=== PATIENT | male | born 1985 | race Caucasian/White ===

== ENCOUNTER 2019-01-03 23:54 | Inpatient (IN) ==
[2019-01-04 01:35] LABS: Basophils # (auto) 0.01 K/uL (0-0.2); Basophils % (auto) 0.1 %; Eosinophils # (auto) 0.16 K/uL (0-0.5); Eosinophils % (auto) 1.9 %; Hematocrit (blood only) 41.5 % (42-52); Hemoglobin 14.6 g/dL (14.0-18.0); Immature Granulocytes # (auto) 0.01 K/uL (0.00-0.02); Immature Granulocytes % (auto) 0.1 %; Lymphocytes % (auto) 18.8 %; Mean Corpuscular Hgb Conc 35.2 g/dL (32-36); Mean Corpuscular Volume 94.1 fL (80-100); Mean Platelet Volume 10.2 fL (7.4-10.4); Monocytes # (auto) 0.78 K/uL (0.11-0.59); Monocytes % (auto) 9.2 %; Neutrophils # (auto) 5.96 K/uL (1.4-6.5); Neutrophils % (auto) 69.9 %; Platelet Count 243 K/uL (130-400); RDW Coefficient of Variation 12.8 % (11.5-14.5); RDW Standard Deviation 44.1 fL (36.4-46.3); Red Blood Count 4.41 M/uL (4.7-6.1); White Blood Count 8.52 K/uL (4.8-10.8)
[2019-01-04 02:16] LABS: Albumin Globulin Ratio 1.1 (0.9-2); BUN Creatinine Ratio 14.7 (10-20); Bilirubin,Total 0.4 mg/dl (0.2-1); Calcium 8.6 mg/dl (8.5-10.1); Creatinine Clr Calc Pharmacy 161.9 ml/min; Est GFR (African American) 140.3; Globulin 3.7 gm/dl (2.5-4.0); Potassium 3.5 mmol/L (3.5-5.1); Total Protein 7.7 gm/dl (6.4-8.2)
[2019-01-04] MEDS ORDERED: IOVERSOL 100ml IV PRN (02:25)
[2019-01-04] MEDS ORDERED: VANCOMYCIN HCL 1,750 MG in SODIUM CHLORIDE 0.9% 500 ML IV ONE (04:41)
[2019-01-04] MEDS ORDERED: VANCOMYCIN CONSULT ACTIVE PRN ×2 (04:41→06:13)
[2019-01-04] MEDS ORDERED: cefTRIAXone SODIUM 1,000 MG/50 ML BAG IV STA (04:41)
[2019-01-04] MEDS ORDERED: ACETAMINOPHEN 325 MG TAB PO PRN (06:13)
[2019-01-04] MEDS ORDERED: POLYETHYLENE (MIRALAX) 17 GM PACK PO PRN (06:13)
[2019-01-04] MEDS ORDERED: ONDANSETRON INJ 2 MG/ML 2 ML VIAL IV PRN (06:13)
[2019-01-04] MEDS ORDERED: VANCOMYCIN HCL 1,000 MG in SODIUM CHLORIDE 0.9% 250 ML IV SCH (06:13)
[2019-01-04] MEDS ORDERED: OXYCODONE/ACETAMINOPHEN 5mg/325mg TAB PO PRN (06:13)
[2019-01-04] MEDS ORDERED: AMPICILLIN/SULBACTAM CONSULT ACTIVE PRN (06:29)
--- NOTE | 2019-01-04 06:44 | History and Physical Report ---
DATE OF ADMISSION: 01/04/2019 CHIEF COMPLAINT: Infection behind the right ear. HISTORY OF PRESENT ILLNESS: A 33-year-old male with past medical history significant for depression, convulsions, not followed with neurology for some time now, who does not speak Slovenian, speaks Vietnamese, comes because of infection behind right ear since last Saturday. He thought he was bit by a spider. He went to the [place] [facility] and prescribed clindamycin on December 30. It was not getting better and he was in a lot of pain and went to PCP's office on January 02, they tried to do I and D, but not much came out. He was advised to follow up if not getting better. As he is not getting better, and having lot of pain he came here to our ER. Soft tiisue CAT scan of the neck was done. The results are pending.But seems there is phlegmon and cellulitis Hemodynamically stable. Labs are okay. We admitting for failed outpatient treatment. The patient says he had a fever yesterday, and has a lot of pain in his neck region around the lesion.. His appetite is okay. Denies any other problems. Denies any chest pain, no shortness of breath, no cough, no nausea, no vomiting, no abdominal pain. Normal bowel and bladder movements. No hematuria, no dysuria, no black stools or blood in the stools. No swelling of the legs, no rash. Currently sleepy.Brought his home medications bag ALLERGIES: No known drug allergies. PAST MEDICAL HISTORY: As mentioned above. PAST SURGICAL HISTORY: No surgical history in file. MEDICATIONS: The patient is on bupropion 100 mg p.o. at bedtime, carbamazepine 200 mg p.o. b.i.d., clindamycin 300 mg p.o. t.i.d., Klonopin 1 mg in a.m. and 2 mg at bedtime, Percocet 1 tablet p.o. q. 8 hours p.r.n. FAMILY HISTORY: Significant for: Father had diabetes and hypertension. SOCIAL HISTORY: Single. No smoking, no alcohol, no drug use as per records. REVIEW OF SYMPTOMS: As per HPI, rest of review of systems is negative. PHYSICAL EXAMINATION: GENERAL: The patient is alert and awake, somewhat sleepy, not in acute distress. VITAL SIGNS: Temperature 37, pulse 60, respiratory 12, blood pressure 91/56, oxygen 96% room air. HEENT: No pallor, no icterus. Pupils equal, round, reactive. NECK: No JVD, no neck masses, no carotid bruits. CARDIOVASCULAR: S1, S2 heard. Regular rate and rhythm, no murmur, no gallop. RESPIRATORY SYSTEM: Normal AP diameter. No accessory muscle use. No wheezing, no crackles. ABDOMEN: Soft, bowel sounds present, nontender. No distention. CENTRAL NERVOUS SYSTEM: Cranial nerves II-XII grossly intact, nonfocal. SKIN: Erythematous changes behind the right ear and papule with some drainage seen. EXTREMITIES: No edema, no erythema. LABORATORY DATA: WBC 8.5, hemoglobin 14.6, hematocrit 41.5, platelets 243. Sodium 139, potassium 3.5, chloride 104, bicarbonate 28, BUN 11, creatinine 0.7, serum glucose 95, calcium 8.6, total bilirubin 0.4, AST 21, ALT 34, alkaline phosphatase 83. Soft tissue neck CT scan is pending. ASSESSMENT AND PLAN: This is a 33-year-old male who presents with failed outpatient treatment for infection behind his right ear. 1. Cellulitis, questionable abscess behind the right ear, possible spider bite about a week ago. Treated with clindamycin.Worsening. We will start him on IV vancomycin and IV Unasyn. Follow the soft tissue CT neck results. Consult ENT for any I and D. Follow the cultures. Pain control. 2. History of depression. Continue bupropion. 3. History of seizures. Continue carbamazepine and Klonopin.Needs to followup with neurology. 4. Deep venous thrombosis prophylaxis, sequential compression devices for now. 5. Disposition: Admit to medical floor. Expect discharge home and follow with family doctor. Level 1 full code. MTDD
[2019-01-04] MEDS: clonazePAM 1 MG TAB PO SCH ×2 (08:59→21:15)
[2019-01-04] MEDS: AMPICILLIN/SULBACTAM SOD 1,500 MG in 0.9 % SODIUM CHLORIDE 100 ML IV SCH ×3 (08:59→21:12)
[2019-01-04] MEDS: CARBAMAZEPINE 200 MG TABCR PO SCH ×2 (08:59→17:05)
[2019-01-04] MEDS: SODIUM CHLORIDE 0.9% 1000ML 1,000 ML IV SCH ×2 (09:01→21:11)
--- NOTE | 2019-01-04 09:14 | Emergency Department Note ---
History of Present Illness General Chief complaint: Bite Stated complaint: SPIDER BITE??? Source: patient Mode of arrival: ambulatory Limitations: no limitations History of Present Illness Maximum Pain Intensity: 10 This patient is a 33-year-old male who presents to the emergency department ambulatory complaining of an infection behind his right ear. The patient states that he was visiting family 6 days ago and believes he may have been bitten by a spider. He states that the next day, he began developing worsening swelling. He was seen at the [facility] and was prescribed clindamycin. He has been taking this as prescribed. He saw his primary care provider yesterday due to worsening symptoms and they tried to perform an incision and drainage, but nothing came out. He states that he has been feeling feverish. He rates his discomfort a 10/10. He states the pain is causing a headache. He denies any history of medical problems. Home Medications Home Medications Medication Instructions Recorded Confirmed Type bupropion HCl 100 mg PO HS 01/04/19 01/04/19 History carbamazepine 200 mg PO BIDM 01/04/19 01/04/19 History clindamycin HCl 300 mg PO TID 01/04/19 01/04/19 History clonazepam 1 mg PO QAM 01/04/19 01/04/19 History clonazepam 2 mg PO HS 01/04/19 01/04/19 History oxycodone-acetaminophen [Percocet] 1 tab PO Q8H PRN 01/04/19 01/04/19 History Allergies Allergy/AdvReac Type Severity Reaction Status Date / Time No Known Allergies Allergy Verified 01/04/19 00:13 Past Med/Surg History Medical History No significant past medical history Social History Preferred Language: Grenadian Communication Ability: Effective Communication Tools: IPad, Language Line Label Pinker and Lip Movement/Reading Label Pinker Required: Yes and Video Beliefs That Will Affect Care: None Current Living Situation: Spouse Other Information That Helps Us Care for You: No Feels Safe at Home: Yes Safety Concerns: Feels Safe At This Time Smoking Status: Never smoker Hx Alcohol Use: No Hx Substance Use: No Review of Systems A total of 10 systems reviewed and were otherwise negative Physical Exam Vital Signs Vital Signs - 24 hr 01/03/19 23:58 01/04/19 01:50 01/04/19 02:49 Temperature 37 C Temperature Source Oral Sepsis Recent Fever Within 48 Hours No Sepsis Action Taken by Nursing No Action Required Pulse Rate 95 H Pulse Rate [Right Finger] 70 68 Pulse Rhythm [Right Finger] Regular Respiratory Rate 18 14 12 Respiratory Effort / Characteristics Non-Labored Spontaneous Non-Labored Spontaneous Respiratory Depth Normal Normal Respiratory Pattern Regular Blood Pressure 117/71 Blood Pressure [Right Arm] 119/66 91/56 L Blood Pressure Mean 86 Blood Pressure Mean [Right Arm] 83 67 Pulse Oximetry 96 99 96 Oxygen Delivery Method Room Air Room Air Room Air VITALS: Vitals are noted on the nurse's note and reviewed by myself. Vital signs stable. GENERAL: This is a 33-year-old male, in no acute distress, nondiaphoretic, well-developed well-nourished. SKIN: There is a soft tissue lesion/area of erythema/edema posterior to the right ear. There is surrounding induration and erythema extending down the neck. There is no fluctuance. EARS: External auditory canals clear, tympanic membranes pearly mustafa without erythema or effusion bilaterally. EYES: Pupils equal round and reactive to light and accommodation. NOSE: Patent, turbinates without inflammation or discharge. MOUTH: Mucous membranes moist. Tonsils are not enlarged. Pharynx without erythema or exudate. NECK: Supple without nuchal rigidity. No lymphadenopathy. HEART: Regular rate and rhythm without murmurs gallops or rubs. LUNGS: Clear to auscultation bilaterally without wheezes, rales or rhonchi. NEURO: Patient was alert and oriented to person place and time. Course Consultations Consultation #1: Dr. Joe [facility] hospitalist Administered Medications Bupropion HCl (Wellbutrin-Sr) 100 mg PO HS [facility] Stop: 02/03/19 20:59 Last Admin: 01/04/19 21:15 Dose: 100 mg Documented by: [id number] Carbamazepine (Tegretol Xr) 200 mg PO BIDM [facility] Stop: 02/03/19 07:59 Last Admin: 01/04/19 17:05 Dose: 200 mg Documented by: [id number] Admin: 01/04/19 08:59 Dose: 200 mg Documented by: [id number] Clonazepam (Klonopin) 1 mg PO QAM [facility] Stop: 02/03/19 08:59 Last Admin: 01/04/19 08:59 Dose: 1 mg Documented by: [id number] Clonazepam (Klonopin) 2 mg PO HS [facility] Stop: 02/03/19 20:59 Last Admin: 01/04/19 21:15 Dose: 2 mg Documented by: [id number] Ampicillin Sodium/Sulbactam Sodium 1,500 mg/ Sodium Chloride 104 mls @ 200 mls/hr IV Q6H [facility]; Protocol Stop: 01/14/19 07:59 Last Infusion: 01/05/19 02:36 Dose: 0 mls/hr Documented by: [id number] Admin: 01/05/19 02:04 Dose: 200 mls/hr Documented by: [id number] Infusion: 01/04/19 21:58 Dose: 0 mls/hr Documented by: [id number] Admin: 01/04/19 21:12 Dose: 200 mls/hr Documented by: [id number] Infusion: 01/04/19 13:20 Dose: 0 mls/hr Documented by: [id number] Admin: 01/04/19 12:43 Dose: 200 mls/hr Documented by: [id number] Infusion: 01/04/19 09:35 Dose: 0 mls/hr Documented by: [id number] Admin: 01/04/19 08:59 Dose: 200 mls/hr Documented by: [id number] Sodium Chloride (Nss 1000ml) 1,000 mls @ 80 mls/hr IV .[id number] [facility] Stop: 02/03/19 07:14 Last Infusion: 01/04/19 21:58 Dose: 80 mls/hr Documented by: [id number] Infusion: 01/04/19 21:21 Dose: 0 mls/hr Documented by: [id number] Admin: 01/04/19 21:11 Dose: 80 mls/hr Documented by: [id number] Infusion: 01/04/19 21:11 Dose: 0 mls/hr Documented by: [id number] Admin: 01/04/19 09:01 Dose: 80 mls/hr Documented by: [id number] Vancomycin HCl 1,250 mg/ (Sodium Chloride) 275 mls @ 125 mls/hr IV Q8H [facility]; Protocol Stop: 01/14/19 12:59 Last Infusion: 01/05/19 00:11 Dose: 0 mls/hr Documented by: [id number] Admin: 01/04/19 21:59 Dose: 125 mls/hr Documented by: [id number] Infusion: 01/04/19 21:06 Dose: 0 mls/hr Documented by: [id number] Infusion: 01/04/19 14:39 Dose: 0 mls/hr Documented by: [id number] Admin: 01/04/19 12:29 Dose: 125 mls/hr Documented by: [id number] Ketorolac Tromethamine (Toradol) 30 mg IV Q6H PRN PRN Reason: Severe Pain Stop: 01/09/19 14:04 Last Admin: 01/04/19 21:22 Dose: 30 mg Documented by: [id number] Oxycodone HCl (Roxicodone Immediate Rel) 10 mg PO Q6H PRN PRN Reason: Severe Pain Stop: 01/18/19 14:14 Last Admin: 01/04/19 23:34 Dose: 10 mg Documented by: [id number] Discontinued Medications Hydromorphone HCl (Dilaudid) 1 mg IV NOW ONE Stop: 01/04/19 09:19 Last Admin: 01/04/19 09:25 Dose: 1 mg Documented by: [id number] Hydromorphone HCl (Dilaudid) 1 mg IV NOW ONE Stop: 01/04/19 09:25 Last Admin: 01/04/19 09:32 Dose: Not Given Documented by: [id number] Hydromorphone HCl (Dilaudid) 1 mg IV NOW STA Stop: 01/04/19 13:52 Last Admin: 01/04/19 14:19 Dose: 1 mg Documented by: [id number] Ceftriaxone Sodium (Rocephin) 1,000 mg in 50 mls @ 100 mls/hr IV NOW STA Stop: 01/04/19 05:10 Last Infusion: 01/04/19 05:34 Dose: 0 mls/hr Documented by: [id number] Admin: 01/04/19 04:55 Dose: 100 mls/hr Documented by: [id number] Vancomycin HCl 1,750 mg/ (Sodium Chloride) 535 mls @ 200 mls/hr IV NOW ONE Stop: 01/04/19 07:21 Last Infusion: 01/04/19 08:22 Dose: 0 mls/hr Documented by: [id number] Admin: 01/04/19 05:41 Dose: 200 mls/hr Documented by: [id number] Ioversol (Optiray 320 100ml) 93 ml IV ONCE PRN PRN Reason: Interaction Checking Stop: 01/08/19 02:24 Last Admin: 01/04/19 02:26 Dose: 93 ml Documented by: [id number] Oxycodone/Acetaminophen (Percocet 5mg/325mg) 1 tab PO Q8H PRN PRN Reason: Pain Stop: 01/18/19 06:12 Last Admin: 01/04/19 06:36 Dose: 1 tab Documented by: [id number] Medical Decision Making Differential Diagnosis Differential diagnosis includes abscess, phlegmon, cellulitis, necrotic lymph node, mastoiditis, among others. Home Medications Current Medication List: was personally reviewed by me Laboratory Data Attestation: I reviewed the patient's lab results. Result diagrams: 01/04/19 01:23 01/04/19 01:23 Lab Results 01/04/19 01/04/19 Range/Units 01:23 01:23 WBC 8.52 (4.8-10.8) K/uL RBC 4.41 L (4.7-6.1) M/uL Hgb 14.6 (14.0-18.0) g/dL Hct 41.5 L (42-52) % MCV 94.1 (80-100) fL MCH 33.1 (25-34) pg MCHC 35.2 (32-36) g/dL RDW Std Deviation 44.1 (36.4-46.3) fL RDW Coeff of Shey 12.8 (11.5-14.5) % Plt Count 243 (130-400) K/uL MPV 10.2 (7.4-10.4) fL Immature Gran % (Auto) 0.1 % Neut % (Auto) 69.9 % Lymph % (Auto) 18.8 % [place] % (Auto) 9.2 % Eos % (Auto) 1.9 % Baso % (Auto) 0.1 % Immature Gran # (Auto) 0.01 (0.00-0.02) K/uL Neut # (Auto) 5.96 (1.4-6.5) K/uL Lymph # (Auto) 1.60 (1.2-3.4) K/uL [place] # (Auto) 0.78 H (0.11-0.59) K/uL Eos # (Auto) 0.16 (0-0.5) K/uL Baso # (Auto) 0.01 (0-0.2) K/uL Sodium 139 (136-145) mmol/L Potassium 3.5 (3.5-5.1) mmol/L Chloride 104 (98-107) mmol/L Carbon Dioxide 28 (21-32) mmol/L Anion Gap 7.0 (3-11) BUN 11 (7-18) mg/dl Creatinine 0.73 (0.6-1.4) mg/dl Est Cr Clr Drug Dosing 161.9 ml/min Est GFR ( Amer) 140.3 Est GFR (Non-Af Amer) 121.0 BUN/Creatinine Ratio 14.7 (10-20) Glucose 95 (70-99) mg/dl Calcium 8.6 (8.5-10.1) mg/dl Total Bilirubin 0.4 (0.2-1) mg/dl AST 21 (15-37) U/L ALT 34 (12-78) U/L Alkaline Phosphatase 83 (45-117) U/L Total Protein 7.7 (6.4-8.2) gm/dl Albumin 4.0 (3.4-5.0) gm/dl Globulin 3.7 (2.5-4.0) gm/dl Albumin/Globulin Ratio 1.1 (0.9-2) Specimen Hemolysis Imaging Data Attestation: I personally reviewed and interpreted this imaging study as follows: Radiologist's Impression: CT MAXILLOFACIAL: COMPARISON: None IMPRESSION: 9 mm x 11 mm x 8 mm cutaneous abscess/phlegmon (blemish) in the right retroauricular soft tissues, overlying the right mastoid process, which likely drains to the cutaneous surface (central umbilication). Subjacent stranding/induration is present extending to the level of the perivertebral fascia compatible with associated cellulitis or phlegmon. No mastoid effusion or tympanic cavity fluid to suggest otomastoiditis. INCIDENTAL FINDINGS: Mild sinus mucosal thickening without fluid level. Hypoplastic left vertebral artery. Mild spondylosis. Radiologist: Manfred Ricci M.D. Blood Pressure Blood Pressure Findings: Normal blood pressure Blood Pressure Disposition: did not require urgent referral MDM Narrative The patient is a 33-year-old male who presents today complaining of an infection posterior to the right ear. On exam, patient has a lesion with erythema/induration extending slightly into the neck. Patient has been on clindamycin for 6 days with no improvement. Lab studies are normal, with no leukocytosis, anemia or concerning electrolyte abnormality. CT was performed and does show a phlegmon with associated cellulitis. Patient has had subjective fevers at home. He was given broad-spectrum antibiotics and admitted to the [facility] service for further evaluation due to his failure of outpatient therapy. Impression & Plan Cellulitis and abscess of neck Discharge Plan Visit Data *Final* Discharge Date/Time: 01/04/19 05:56 Chief Complaint: Bite Stated Complaint: SPIDER BITE??? ED Provider: Hilario aJramillo ED Midlevel Provider: Tania Damon Discharge Problem: Cellulitis and abscess of neck Patient Disposition: Admitted As Inpatient Discharge Instructions Interventions: ED Discharge Assessment Last Done: 01/04/19 05:56
[2019-01-04] MEDS ORDERED: HYDROmorphone INJ 1 MG/ML SYRINGE IV ONE ×2 (09:18→09:24)
--- NOTE | 2019-01-04 09:39 | CT Scan Report ---
CT SCAN OF THE NECK WITH IV CONTRAST CLINICAL HISTORY: Pain and swelling behind the right ear. COMPARISON STUDY: No priors. TECHNIQUE: Following the IV administration of 93 cc of Optiray 320, CT scan of the soft tissues of th e neck was performed from the skull base to the upper chest. Images are reviewed in the axial, sagitt al, and coronal planes. IV contrast was administered without complication. A dose lowering techniqu e was utilized adhering to the principles of ALARA. The examination is degraded by motion artifact. CT DOSE: 580.62 mGy.cm FINDINGS: Soft tissues: There is dermal thickening and soft tissue infiltration seen posterior to the right ear an overlying the inferior aspect of the right temporal bone. A 10 mm focus of phlegmonous changes id entified at the dermal surface on image #91. No organized fluid collection is seen to indicate absces s. There is no osseous involvement. Pharynx: The nasopharynx, oropharynx, and laryngeal pharynx are normal in appearance. The pharyngeal airway is widely patent. There is no evidence of mass lesion. The vocal cords are symmetric. The para pharyngeal fat is well maintained. The prevertebral/retropharyngeal soft tissues are within normal li mits. The epiglottis is normal. Lymphadenopathy: There are no pathologically enlarged cervical lymph nodes. Thyroid: Normal in size and attenuation. Salivary glands: The parotid and submandibular glands are within normal limits. Brain parenchyma: The visualized brain parenchyma at the skull base is normal in appearance. Vascular structures: The carotid arteries and jugular veins are patent. Skeletal structures: Imaged portions of the calvarium at the skull base are within normal limits. The cervical spine appears intact. Orbits: The bony orbits are intact. Orbital contents are normal in appearance. Sinuses and mastoids: There is mild mucosal thickening within the left maxillary antrum. Trace mucosa l thickening is also seen within the frontal and ethmoid sinuses. The mastoid air cells are well pneu matized. Lung apices: Visualized apical lung parenchyma is clear. IMPRESSION: 1. Findings suggest cellulitis with phlegmonous change identified in the right retroauricular soft ti ssues. 2. No organized fluid collection is seen to indicate abscess. Electronically signed by: Preet hSore M.D. 01/04/2019 9:38 AM
--- NOTE | 2019-01-04 11:20 | Pharmacy Report ---
Pharmacy Abx Initial Consult - Date of Service January 04, 2019 - Pharmacy Dosing Scope Date of Consult: 01/04/19 Consultation requested by: Dr. Joe Pharmacy is consulted to initiate vancomycin and ampicillin/sulbactam IV dosing therapy, order appropriate labs and adjust drug dose/frequency. - Subjective The patient is a 33 year old M admitted on 01/04/19 05:18. - Objective Height: 5 ft 10 in Weight: 90.3 kg Vital Signs (Past 12hrs): Vital Signs Temp Pulse Pulse Resp BP BP BP 01/04/19 07:48 36.5 C 58 L 16 112/61 01/04/19 06:17 36.5 C 93 H 18 127/65 01/04/19 06:07 36.5 C 93 H 15 127/65 01/04/19 05:56 78 14 109/59 L 01/04/19 02:49 68 12 91/56 L 01/04/19 01:50 70 14 119/66 01/03/19 23:58 37 C 95 H 18 117/71 Pulse Ox 01/04/19 07:48 98 01/04/19 06:17 98 01/04/19 06:07 98 01/04/19 05:56 95 01/04/19 02:49 96 01/04/19 01:50 99 01/03/19 23:58 96 Lab Results (24hrs): Laboratory Tests (24 Hours) 01/04/19 01/04/19 01:23 01:23 WBC 8.52 Neut # (Auto) 5.96 Creatinine 0.73 Est Cr Clr Drug Dosing 161.9 Micro Results: 01/04/19 Unknown Gram Stain - Final Neck Wound Culture - Pending 01/04/19 06:39 Aerobic Blood Culture - Pending Blood Anaerobic Blood Culture - Pending 01/04/19 06:29 Aerobic Blood Culture - Pending Blood Anaerobic Blood Culture - Pending - Assessment & Plan Assessment 33 year old M presented the ED on 01/04 with a chief complaint of infection behind right ear (possible spider bite?) since last Saturday. Started clindamycin PO on 12/30 with attempted I&D at PCP office on 01/02 (minimal drainage). Patient complains of 10/10 pain and feeling feverish (afebrile during this admission). CT of neck (01/04): findings suggestive of cellulitis, no evidence of fluid collection (abscess) Plan Vancomycin IV * Estimated PK Parameters: Vd 0.7 L/kg, Mikel 0.104 hr-1, t1/2 6.6 hr, estimated CrCl > 120 mL/min * Loading dose: vancomycin 1750 mg (19 mg/kg) * Maintenance dose: 1250 mg IV (14 mg/kg) every 8 hours * Goal trough level for cellulitis : 10 to 15 mcg/mL * Trough level ordered for 01/05/19 @0430 prior to 4th dose Unasyn IV * 1.5 g IV q6h - appropriately dosed for patient's renal function Broad spectrum antibiotics with vancomycin and ampicillin/sulbactam is appropriate at this time due to recent treatment failure with clindamycin PO. Pharmacy will continue to follow and will adjust dose/frequency as necessary. Thank you.
[2019-01-04] MEDS: VANCOMYCIN HCL 1,250 MG in SODIUM CHLORIDE 0.9% 250 ML IV SCH ×2 (12:29→21:59)
[2019-01-04] MEDS ORDERED: HYDROmorphone INJ 1 MG/ML SYRINGE IV STA (13:51)
[2019-01-04] MEDS ORDERED: HYDROmorphone INJ 1 MG/ML SYRINGE IV PRN (13:51)
[2019-01-04] MEDS ORDERED: IBUPROFEN 600 MG TAB PO PRN (14:05)
[2019-01-04] MEDS ORDERED: ACETAMINOPHEN 500 MG TAB PO PRN (14:09)
[2019-01-04] MEDS ORDERED: OXYCODONE HCL IR 5 MG TAB (IMMEDIATE RELEASE) PO PRN (14:09)
--- NOTE | 2019-01-04 17:25 | Hospitalist Progress Note ---
Date of Service January 04, 2019 Assessment & Plan (1) Cellulitis of neck: ENT consulted, but not available. No apparent postauricular abscess. Continue IV antibiotic therapy with vancomycin and ampicillin / sulbactam. Continue analgesics. Consult ID. (2) Seizure disorder: Continue carbamazepine and clonazepam. (3) DVT prophylaxis: SCD's ordered. Ambulate. (4) Discharge planning issues: Anticipated discharge to home. Medical follow-up with Dr. Archibald. Subjective Admitted this morning with postauricular cellulitis thought to be secondary to spider bite. Patient reassessed this afternoon with assistance of translation service. Receiving IV antibiotic therapy. Afebrile. Continues to have severe pain. Physical Exam ENMT: right postauricular carbuncle with surrounding erythema and cellulitis; erythema and tenderness extends down the anterolateral neck Results & Data Vital Signs (Past 12 Hours) Vital Signs Temp Pulse Pulse Resp BP BP Pulse Ox 01/04/19 15:05 36.4 C L 67 16 131/79 97 01/04/19 07:48 36.5 C 58 L 16 112/61 98 01/04/19 06:17 36.5 C 93 H 18 127/65 98 01/04/19 06:07 36.5 C 93 H 15 127/65 98 01/04/19 05:56 78 14 109/[address] NECK IMPRESSION: 1. Findings suggest cellulitis with phlegmonous change identified in the right retroauricular soft tissues. 2. No organized fluid collection is seen to indicate abscess. Electronically signed by: Preet Shore M.D. 01/04/2019 9:38 AM
[2019-01-04] MEDS: BuPROPion SR 100 MG TABCR PO SCH (21:15)
[2019-01-04] MEDS: KETOROLAC 30 MG/ML VIAL IV PRN (21:22)
[2019-01-05] MEDS: AMPICILLIN/SULBACTAM SOD 1,500 MG in 0.9 % SODIUM CHLORIDE 100 ML IV SCH ×4 (02:04→19:46)
[2019-01-05] MEDS ORDERED: VANCOMYCIN TROUGH ONE ×2 (04:30→12:30)
[2019-01-05] MEDS: VANCOMYCIN HCL 1,250 MG in SODIUM CHLORIDE 0.9% 250 ML IV SCH ×3 (05:27→20:36)
[2019-01-05 05:36] LABS: Basophils # (auto) 0.01 K/uL (0-0.2); Basophils % (auto) 0.3 %; Eosinophils # (auto) 0.14 K/uL (0-0.5); Eosinophils % (auto) 3.5 %; Hematocrit (blood only) 39.9 % (42-52); Hemoglobin 13.7 g/dL (14.0-18.0); Immature Granulocytes # (auto) 0.01 K/uL (0.00-0.02); Immature Granulocytes % (auto) 0.3 %; Lymphocytes # (auto) 1.09 K/uL (1.2-3.4); Lymphocytes % (auto) 27.3 %; Mean Corpuscular Hgb Conc 34.3 g/dL (32-36); Mean Corpuscular Volume 94.8 fL (80-100); Mean Platelet Volume 10.8 fL (7.4-10.4); Monocytes # (auto) 0.28 K/uL (0.11-0.59); Neutrophils # (auto) 2.46 K/uL (1.4-6.5); Neutrophils % (auto) 61.6 %; Platelet Count 229 K/uL (130-400); RDW Standard Deviation 45.2 fL (36.4-46.3); Red Blood Count 4.21 M/uL (4.7-6.1); White Blood Count 3.99 K/uL (4.8-10.8)
[2019-01-05 06:07] LABS: Creatinine Clr Calc Pharmacy 170.5 ml/min; Est GFR (African American) 143.6; Est GFR (Non-African American) 123.9; Magnesium 2.1 mg/dl (1.8-2.4); Potassium 3.5 mmol/L (3.5-5.1)
[2019-01-05] MEDS: KETOROLAC 30 MG/ML VIAL IV PRN ×2 (07:52→16:28)
[2019-01-05] MEDS: CARBAMAZEPINE 200 MG TABCR PO SCH ×2 (09:35→16:29)
[2019-01-05] MEDS: clonazePAM 1 MG TAB PO SCH ×2 (09:35→20:41)
[2019-01-05] MEDS: SODIUM CHLORIDE 0.9% 1000ML 1,000 ML IV SCH ×2 (11:15→23:53)
--- NOTE | 2019-01-05 11:26 | Infectious Disease Consult ---
Date of Consultation January 05, 2019 Assessment & Plan (1) Cellulitis and abscess of neck: continue abx for now, follow wound and blood cultures, may need I&D. warm compress. follow cultures. likely will d/c home with po abx. will follow. History of Present Illness Attending Physician: Pankaj Brito MD pt admitted with increased neck/scalp pain. had "spider bite" and was initially seen in [place] on 12/30 -placed on clinda, no significant improvement, saw pcp, attempted I&D per H&P, no improvement, increased pain, came to ER - ct neck showing Right ear cellulitis with 1 cm collection, no active drainage, no pain currently. feeling better .was placed on unasyn and vanco, toelrating well. wbc 3.9, creat 0.6, afebrile. Blood culture pending, wound culture pending gram stain no organisms. no cp, sob, hernandez, no abd pain, no n/v/d Allergies Allergy/AdvReac Type Severity Reaction Status Date / Time No Known Allergies Allergy Verified 01/04/19 00:13 Home Medications Home Medications Medication Instructions Recorded Confirmed Type bupropion HCl 100 mg PO HS 01/04/19 01/04/19 History carbamazepine 200 mg PO BIDM 01/04/19 01/04/19 History clindamycin HCl 300 mg PO TID 01/04/19 01/04/19 History clonazepam 1 mg PO QAM 01/04/19 01/04/19 History clonazepam 2 mg PO HS 01/04/19 01/04/19 History oxycodone-acetaminophen [Percocet] 1 tab PO Q8H PRN 01/04/19 01/04/19 History Patient History Medical History No significant past medical history Social History Preferred Language: Persian Communication Ability: Effective Communication Tools: IPad, Language Line Riprap Worker, Physical Gestures and Lip Movement/Reading Riprap Worker Required: Yes and Video Beliefs That Will Affect Care: None Current Living Situation: Spouse Other Information That Helps Us Care for You: No Feels Safe at Home: Yes Safety Concerns: Feels Safe At This Time Smoking Status: Never smoker Hx Alcohol Use: No Hx Substance Use: No Review of Systems Review of Systems: All systems reviewed & are unremarkable except as noted in HPI & below Physical Exam Constitutional: WD/WN, vitals as above Eyes: PERRL, conjunctivae normal, anicteric sclerae ENMT: external ear and nose normal, oropharynx normal Neck: normal visual inspection Respiratory: normal respiratory effort, lungs clear to auscultation Cardiovascular: RRR, no murmur, no edema Gastrointestinal (Abdomen): normal bowel sounds, soft, nontender, no hepatosplenomegaly Musculoskeletal: no cyanosis or clubbing, extremities motor strength 5/5 Skin: no rashes, warm and dry icm raised abscess right scalp/hairline. no acitve drainage ,no surrounding edema, min erythema no warmth Psychiatric: A+Ox3, euthymic affect Results & Data Vital Signs (Past 12 Hours) Vital Signs Temp Pulse Resp BP Pulse Ox 01/05/19 07:59 36.5 C 74 19 128/78 96 Laboratory Results Microbiology 01/04/19 Unknown Neck Gram Stain - Final 01/04/19 Unknown Neck Wound Culture - Preliminary Staphylococcus aureus 01/04/19 06:29 Blood Aerobic Blood Culture - Preliminary No growth in Aerobic bottle after 24 hours. 01/04/19 06:29 Blood Anaerobic Blood Culture - Preliminary No growth in Anaerobic bottle after 24 hours. 01/04/19 06:39 Blood Aerobic Blood Culture - Preliminary No growth in Aerobic bottle after 24 hours. 01/04/19 06:39 Blood Anaerobic Blood Culture - Preliminary No growth in Anaerobic bottle after 24 hours. PG Care Time/CCT Total # of Minutes Spent Total Time Spent with Patient: Total time spent is greater than 50% in coordination of care (as documented) at patient's floor/unit and/or counseling patient:
--- NOTE | 2019-01-05 13:15 | Pharmacy Report ---
Pharmacy Abx Dose Short Note - Date of Service January 05, 2019 - Assessment & Plan Assessment Trough therapeutic this AM for cellulitis, 10.1 mcg/mL. Culture is growing staph aureus. We do not have an STERLING yet. Trough was reflective of Css. We will continue this dose and interval. BCx2 are also NGTD. Will order f/u trough if renal fxn/clinical status deteriorates. Pharmacy will continue to follow and will adjust dose/frequency as necessary. Thank you.
--- NOTE | 2019-01-05 18:29 | Hospitalist Progress Note ---
Date of Service January 05, 2019 Assessment & Plan (1) Cellulitis of neck: No apparent postauricular abscess per CT. ID consulted. Afebrile. Symptoms and exam improved. Continue IV antibiotic therapy with vancomycin and ampicillin / sulbactam. Continue analgesics. Warm compresses. (2) Seizure disorder: Continue carbamazepine and clonazepam. (3) DVT prophylaxis: SCD's ordered. Ambulate. (4) Discharge planning issues: Anticipated discharge to home. Medical follow-up with Dr. Archibald. Subjective Recheck for cellulitis. Pt seen in his room around 1500. Interview performed with assistance of translation service. No fever. Less pain. No nausea, vomiting, diarrhea. Physical Exam Constitutional: no acute distress ENMT: RT postauricular carbuncle; erythema surrounding carbuncle and extending down neck less intense Results & Data Vital Signs (Past 12 Hours) Vital Signs Temp Pulse Resp BP BP Pulse Ox 01/05/19 14:59 36.7 C 73 18 114/69 98 01/05/19 07:59 36.5 C 74 19 128/78 96 Laboratory Results Laboratory Results - last 24 hr 01/05/19 01/05/19 01/05/19 04:48 04:48 04:48 WBC 3.99 L RBC 4.21 L Hgb 13.7 L Hct 39.9 L MCV 94.8 MCH 32.5 MCHC 34.3 RDW Std Deviation 45.2 RDW Coeff of Shey 13.0 Plt Count 229 MPV 10.8 H Immature Gran % (Auto) 0.3 Neut % (Auto) 61.6 Lymph % (Auto) 27.3 Creek % (Auto) 7.0 Eos % (Auto) 3.5 Baso % (Auto) 0.3 Immature Gran # (Auto) 0.01 Neut # (Auto) 2.46 Lymph # (Auto) 1.09 L Creek # (Auto) 0.28 Eos # (Auto) 0.14 Baso # (Auto) 0.01 Sodium 142 Potassium 3.5 Chloride 106 Carbon Dioxide 29 Anion Gap 7.0 BUN 14 Creatinine 0.69 Est Cr Clr Drug Dosing 170.5 Est GFR ( Amer) 143.6 Est GFR (Non-Af Amer) 123.9 BUN/Creatinine Ratio 20.0 Glucose 112 H Calcium 8.0 L Magnesium 2.1 Vancomycin Trough 8.9 01/05/19 12:25 WBC RBC Hgb Hct MCV MCH MCHC RDW Std Deviation RDW Coeff of Shey Plt Count MPV Immature Gran % (Auto) Neut % (Auto) Lymph % (Auto) Creek % (Auto) Eos % (Auto) Baso % (Auto) Immature Gran # (Auto) Neut # (Auto) Lymph # (Auto) Creek # (Auto) Eos # (Auto) Baso # (Auto) Sodium Potassium Chloride Carbon Dioxide Anion Gap BUN Creatinine Est Cr Clr Drug Dosing Est GFR ( Amer) Est GFR (Non-Af Amer) BUN/Creatinine Ratio Glucose Calcium Magnesium Vancomycin Trough 10.1
[2019-01-05] MEDS: BuPROPion SR 100 MG TABCR PO SCH (20:43)
[2019-01-06] MEDS: AMPICILLIN/SULBACTAM SOD 1,500 MG in 0.9 % SODIUM CHLORIDE 100 ML IV SCH ×3 (02:32→13:37)
[2019-01-06] MEDS: VANCOMYCIN HCL 1,250 MG in SODIUM CHLORIDE 0.9% 250 ML IV SCH ×2 (04:52→14:20)
[2019-01-06] MEDS: CARBAMAZEPINE 200 MG TABCR PO SCH ×2 (08:18→18:07)
[2019-01-06] MEDS: clonazePAM 1 MG TAB PO SCH (08:18)
[2019-01-06] MEDS: SODIUM CHLORIDE 0.9% 1000ML 1,000 ML IV SCH (08:36)
[2019-01-06 13:04] LABS: Creatinine Clr Calc Pharmacy 199.4 ml/min; Est GFR (African American) > 150.0; Est GFR (Non-African American) 132.1
--- NOTE | 2019-01-06 15:09 | Infectious Disease Progress Nt ---
Date of Service January 06, 2019 Assessment & Plan (1) Cellulitis and abscess of neck: will transition to po doxy, suspect no improvement as MRSA clinda resistant. continue warm compress, will stop IV abx. would give 21 days. ok for d/c from ID standpoint when othewise stable. Subjective pt wound culture growing MRSA, resistant to clinda, has been on clinda as outpt from [facility]. now on vanco, trough low. spoke with pharmacy. afebrile. blood cultures negative. Results & Data Vital Signs (Past 12 Hours) Vital Signs Temp Pulse Resp BP Pulse Ox 01/06/19 07:24 36.7 C 50 L 18 94/58 L 99 Laboratory Results Microbiology 01/04/19 Unknown Neck Gram Stain - Final 01/04/19 Unknown Neck Wound Culture - Final Staph aureus MRSA 01/04/19 06:29 Blood Aerobic Blood Culture - Preliminary No growth in Aerobic bottle after 48 hours. 01/04/19 06:29 Blood Anaerobic Blood Culture - Preliminary No growth in Anaerobic bottle after 48 hours. 01/04/19 06:39 Blood Aerobic Blood Culture - Preliminary No growth in Aerobic bottle after 48 hours. 01/04/19 06:39 Blood Anaerobic Blood Culture - Preliminary No growth in Anaerobic bottle after 48 hours. PG Care Time/CCT Total # of Minutes Spent Total Time Spent with Patient: Total time spent is greater than 50% in coordination of care (as documented) at patient's floor/unit and/or counseling patient:
--- NOTE | 2019-01-06 17:48 | Hospitalist Progress Note ---
Date of Service January 06, 2019 Assessment & Plan (1) Cellulitis of neck: Right retroauricular carbuncle with associated cellulitis; no apparent postauricular abscess per CT. ID consulted. Received IV antibiotic therapy with vancomycin and ampicillin / sulbactam with improvement. Warm compresses. Wound culture growing MRSA; blood cultures negative. ID recommends transitioning to oral therapy with doxycycline 100 mg BID x 21 days. (2) Seizure disorder: Continue carbamazepine and clonazepam. (3) DVT prophylaxis: SCD's ordered. Ambulate. (4) Discharge planning issues: Anticipated discharge to home. Medical follow-up with Dr. Archibald. Subjective Recheck for carbuncle with cellulitis. Pt seen in his room around 1510. Interview performed with assistance of translation service. Feels better. No fever. Less pain. No nausea, vomiting, diarrhea. Physical Exam ENMT: right postauricular carbuncle; erythema surrounding carbuncle and extending down neck improving; anterior cervical adenopathy Results & Data Vital Signs (Past 12 Hours) Vital Signs Temp Pulse Pulse Resp BP BP Pulse Ox 01/06/19 15:26 36.8 C 65 18 112/67 99 01/06/19 07:24 36.7 C 50 L 18 94/58 L 99 Laboratory Results Microbiology 01/04/19 Unknown Neck Gram Stain - Final 01/04/19 Unknown Neck Wound Culture - Final Staph aureus MRSA 01/04/19 06:29 Blood Aerobic Blood Culture - Preliminary No growth in Aerobic bottle after 48 hours. 01/04/19 06:29 Blood Anaerobic Blood Culture - Preliminary No growth in Anaerobic bottle after 48 hours. 01/04/19 06:39 Blood Aerobic Blood Culture - Preliminary No growth in Aerobic bottle after 48 hours. 01/04/19 06:39 Blood Anaerobic Blood Culture - Preliminary No growth in Anaerobic bottle after 48 hours.
[2019-01-06] MEDS ORDERED: VANCOMYCIN HCL 1,750 MG in SODIUM CHLORIDE 0.9% 500 ML IV SCH (20:00)
[2019-01-06] MEDS ORDERED: DOXYCYCLINE HYCLATE 100 MG CAP PO SCH ×2 (21:00)
--- NOTE | 2019-01-07 07:25 | Discharge Summary ---
Date of Service Date of Admission: 01/04/19 Date of Discharge: 01/06/19 Admission HPI Per Admitting Provider A 33-year-old male with past medical history significant for depression, convulsions, not followed with neurology for some time now, who does not speak Croatian, speaks Beninese, comes because of infection behind right ear since last Saturday. He thought he was bit by a spider. He went to the [place] [facility] and prescribed clindamycin on December 30. It was not getting better and he was in a lot of pain and went to PCP's office on January 02, they tried to do I and D, but not much came out. He was advised to follow up if not getting better. As he is not getting better, and having lot of pain he came here to our ER. Soft tiisue CAT scan of the neck was done. The results are pending.But seems there is phlegmon and cellulitis Hemodynamically stable. Labs are okay. We admitting for failed outpatient treatment. The patient says he had a fever yesterday, and has a lot of pain in his neck region around the lesion.. His appetite is okay. Denies any other problems. Denies any chest pain, no shortness of breath, no cough, no nausea, no vomiting, no abdominal pain. Normal bowel and bladder movements. No hematuria, no dysuria, no black stools or blood in the stools. No swelling of the legs, no rash. Currently sleepy.Brought his home medications bag Principal Diagnosis postauricular carbuncle with cellulitis due to MRSA Discharge Data Allergies Allergy/AdvReac Type Severity Reaction Status Date / Time No Known Allergies Allergy Verified 01/04/19 00:13 Consultations 01/04/19 04:37 ED Decision to Admit Stat 01/05/19 07:00 Consult Infectious Diseases Routine Ordered Studies 01/04/19 01:05 CT soft tissue neck w con Stat Hospital Course (1) Cellulitis of neck: Right retroauricular carbuncle with associated cellulitis; no apparent postauricular abscess per CT. ID consulted. Received IV antibiotic therapy with vancomycin and ampicillin / sulbactam with improvement. Warm compresses. Wound culture growing MRSA; blood cultures negative. ID recommended transitioning to oral therapy with doxycycline 100 mg BID x 21 days. (2) Seizure disorder: Continue carbamazepine and clonazepam. (3) DVT prophylaxis: SCD's ordered. Ambulate. (4) Discharge planning issues: Discharged to home. Medical follow-up with Dr. Archibald. Total Time Total Time Spent Total Time Spent (In Minutes): 25 Discharge Plan Discharge Items Patient Disposition: Home - Self-Care Reason For Visit: INFECTION BEHIND RIGHT EAR Discharge Diagnosis: MRSA infection behind right ear Condition: Good Discharge Goals: Decrease discomfort and Improve disease control Activity: Resume your previous activity Non-emergency contact: Primary Care Provider and Hospitalist Call non-emergency contact if: you have any medication questions, your symptoms worsen and your temperature is above 101 Follow-up/Referrals: Og Archibald V., [Primary Care Provider] - (01/09/2019 1:50 PM Veto Spencer MD (covering for Dr. Archibald) [facility]) Diet: Regular Addtl Provider Instructions: MEDICATION CHANGES: Stop clindamycin. Start doxycycline 100 mg twice a day to treat MRSA infection. Prescription sent to [facility] in [place]. SUMMARY OF TEST RESULTS: Culture from back of neck grew MRSA. Blood cultures did not show any infection in blood stream. CT scan showed scalp infection behind right ear, but no apparent abscess to drain. PENDING TEST RESULTS: None. OTHER INSTRUCTIONS: Apply warm compresses to scalp behind right ear 4 times a day until better. Do not share towels, wash cloths, sheets, pillow cases, hats. Wash things in hot water and bleach when possible. Wash your hands regularly. Seek medical attention if you have: * temperature above 101 * chest pain or trouble breathing * abdominal pain, nausea, vomiting * diarrhea, dark stools or bloody stools * any unanswered questions or concerns Call 911 if symptoms are severe. Please take good care of yourself. Call if you have any questions or problems. You can reach a [facility] hospitalist on duty at [facility] 24 hours a day by calling [phone]. My cell # is [phone]. Prescriptions: New doxycycline hyclate 100 mg capsule 100 mg PO BID 21 Days Qty: 42 RF: 0 Continued clonazepam 1 mg Tablet 1 mg PO QAM RF: 0 clonazepam 1 mg Tablet 2 mg PO HS RF: 0 bupropion HCl 100 mg Tablet Sustained-Release 12 Hr 100 mg PO HS RF: 0 oxycodone-acetaminophen [Percocet] 5-325 mg Tablet 1 tab PO Q8H PRN (Reason: Pain) RF: 0 carbamazepine 200 mg Tablet Extended Release 12 Hr 200 mg PO BIDM RF: 0 Discontinued clindamycin HCl 300 mg Capsule 300 mg PO TID RF: 0 Stand-Alone Forms: My [facility], Work/School Release (Inpt) Krames/Other Patient Handouts: Doxycycline Hyclate Gastro-resistant tablet Discharge Orders: Discharge Order (Routine); Ordered 01/06/19 Ordered By: Pankaj Brito Admission Data Admit Date/Time: 01/05/19 18:29 Attending Provider: Pankaj Brito Admit Provider: Raymond Joe Primary Care Provider: Og Archibald V. Other Providers: Mara Ojeda ; Raymond Joe Service: Surgical Services Other Interventions: Discharge Summary Assessment (RN) Last Done: 01/06/19 18:26 DC Date/Time DO NOT enter until pt leaves facility: 01/06/19 22:37
== END 2019-01-06 22:37 | disposition home or self-care (01) | DRG 156 ==
LOC: ED 23:54 → INTOOBSV 01-04 05:18 → 3W 01-04 05:18
DX: F32.9 Major depressive disorder, single episode, unspecified; H60.01 Abscess of right external ear; H60.11 Cellulitis of right external ear; G40.909 Epilepsy, unspecified, not intractable, without status epilepticus